=== PATIENT | male | born 1990 | race American Indian/Alaskan Native ===

== ENCOUNTER 2018-08-25 17:24 | Emergency (ER) | payer SELFPAY ==
[2018-08-25 17:57] VITALS: BP 109/57
[2018-08-25] MEDS ORDERED: NORCO 5/325 PO ONE (19:31)
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
== END 2018-08-25 20:04 | disposition home or self-care (01) ==
LOC: ED 17:24
DX: M54.5 Low back pain (principal); F12.10 Cannabis abuse, uncomplicated; V49.59XA Passenger injured in collision with other motor vehicles in traffic accident, initial encounter; Y93.89 Activity, other specified; Y92.89 Other specified places as the place of occurrence of the external cause; Y99.8 Other external cause status
CPT/HCPCS: 99282